=== PATIENT | male | born 1955 | race Caucasian/White ===

== ENCOUNTER 2024-12-31 08:52 | Outpatient (RCR) | payer MEDICARE, SELFPAY | END 2025-02-24 13:28 | disposition home or self-care (01) | LOC: HO.PT 08:52 | PROVIDERS: PCP Internal Medicine; Visit Provider Physician Assistant Medical | DX: M99.05 Segmental and somatic dysfunction of pelvic region (principal); R15.9 Full incontinence of feces | CPT/HCPCS: 97112; 97161 ==